=== PATIENT | female | born 1960 | race Caucasian/White ===

== ENCOUNTER 2016-10-10 00:44 | Observation (INO) | payer OTHER ==
[~2016-10-10] VITALS: Ht 167.6 cm; Wt 66.8 kg
[2016-10-10 02:00] LABS: PLATELET COUNT 283 x10^3mcL (130-400); RED CELL DISTRIBUTION WIDTH 12.1 % (11.5-14.5)
[2016-10-10 02:03] LABS: BASOPHIL % 2.6 % (0-2)
[2016-10-10 02:18] LABS: ALBUMIN 4.4 g/dL (3.4-5.0); ALKALINE PHOSPHATASE 95 U/L (46-116); ALT/SGPT 32 U/L (14-59); AST/SGOT 24 U/L (15-37); BILIRUBIN TOTAL 0.43 mg/dL (0.20-1.00); CALCIUM 9.3 mg/dL (8.5-10.1); CARBON DIOXIDE 28.1 mmol/L (21-32); CHLORIDE SERUM 105 mmol/L (98-107); CREATININE SERUM 0.7 mg/dL (0.6-1.0); GFR1 > 60 mL/min; GLUCOSE SERUM 117 mg/dL (74-106); MAGNESIUM 2.2 mg/dL (1.8-2.4); SODIUM SERUM 144 mmol/L (136-145); T4(THYROXINE) 12.1 ug/dL (4.7-13.3)
[2016-10-10 02:21] LABS: TOTAL PROTEIN, SERUM 8.3 g/dL (6.4-8.2)
[2016-10-10 02:38] LABS: UA SPECIFIC GRAVITY <=1.005 (1.005-1.035); microscopic required? YES; urine erythrocyte 1+ (NEGATIVE)
[2016-10-10] MEDS ORDERED: HYDROCHLOROTHIA25 MG PO (03:14)
[2016-10-10 04:21] LABS: CHOLESTEROL/HDL RATIO 3.8; PHOSPHOROUS 2.9 mg/dL (2.5-4.9)
[2016-10-10 04:21] LABS: AMPHETAMINE QUAL UR NONE DETECTED (NEG <=1000)
[2016-10-10 04:56] VITALS: BP 123/80
[2016-10-10 05:34] VITALS: BP 114/57
[2016-10-10 05:52] LABS: CALCIUM 8.6 mg/dL (8.5-10.1); CARBON DIOXIDE 24.9 mmol/L (21-32); CHLORIDE SERUM 108 mmol/L (98-107); CREATININE SERUM 0.7 mg/dL (0.6-1.0); GFR1 > 60 mL/min; GLUCOSE SERUM 122 mg/dL (74-106); POTASSIUM SERUM 3.2 mmol/L (3.5-5.1); SODIUM SERUM 142 mmol/L (136-145)
[2016-10-10 10:25] VITALS: BP 112/69
[2016-10-10 11:49] VITALS: Ht 167.6 cm; Wt 66.8 kg
[2016-10-10 17:48] VITALS: BP 105/64
[2016-10-10 19:45] VITALS: BP 102/64
[2016-10-11 05:42] VITALS: BP 99/62
[2016-10-11 06:12] LABS: BASOPHIL % 0.4 % (0-2); PLATELET COUNT 205 x10^3mcL (130-400); RED CELL DISTRIBUTION WIDTH 13.9 % (11.5-14.5)
[2016-10-11 06:16] LABS: CALCIUM 8.2 mg/dL (8.5-10.1); CARBON DIOXIDE 23.3 mmol/L (21-32); CHLORIDE SERUM 111 mmol/L (98-107); CREATININE SERUM 0.6 mg/dL (0.6-1.0); GFR1 > 60 mL/min; GLUCOSE SERUM 95 mg/dL (74-106); MAGNESIUM 2.2 mg/dL (1.8-2.4); PHOSPHOROUS 2.6 mg/dL (2.5-4.9); POTASSIUM SERUM 3.7 mmol/L (3.5-5.1); SODIUM SERUM 143 mmol/L (136-145)
[2016-10-11 09:59] VITALS: BP 154/78
[2016-10-11 13:18] VITALS: BP 123/71
[2016-10-11] MEDS ORDERED: LISINOPRIL10 MG PO (14:06)
[2016-10-11] MEDS ORDERED: NATURAL IRON65 MG PO (14:08)
[2016-10-11] MEDS ORDERED: K-TAB10 MEQ PO (14:16)
[2016-10-11] MEDS ORDERED: GOOD SENSE OMEP20 MG PO (14:18)
[2016-10-11 15:02] VITALS: BP 123/71
== END 2016-10-11 15:36 | disposition home or self-care (01) | DRG 392 ==
LOC: ED 00:44 → DU 02:39 → ED 02:39 → DU 03:33
PROVIDERS: Emergency Medicine; Family Medicine; ADMIT Family Medicine
DX: K21.9 Gastro-esophageal reflux disease without esophagitis (principal); E87.6 Hypokalemia; R73.03 Prediabetes; E78.5 Hyperlipidemia, unspecified
CPT/HCPCS: 82962; 83880; G0378; J1644; J2060; J3480; J7030

== ENCOUNTER 2017-09-10 23:40 | Inpatient (IN) | payer OTHER ==
[~2017-09-10] VITALS: Ht 165.1 cm; Wt 62.6 kg
[~2017-09-10 23:40] MED LIST: GOOD SENSE OMEP20 MG PO; HYDROCHLOROTHIA25 MG PO; K-TAB10 MEQ PO; LISINOPRIL10 MG PO; NATURAL IRON65 MG PO
[2017-09-11 00:41] LABS: BASOPHIL % 0.4 % (0-2); PLATELET COUNT 216 x10^3mcL (130-400); RED CELL DISTRIBUTION WIDTH 13.9 % (11.5-14.5)
[2017-09-11 00:58] LABS: CALCIUM 9.3 mg/dL (8.5-10.1); CARBON DIOXIDE 27.2 mmol/L (21-32); CHLORIDE SERUM 103 mmol/L (98-107); CREATININE SERUM 0.7 mg/dL (0.6-1.0); GFR1 > 60 mL/min; GLUCOSE SERUM 132 mg/dL (74-106); POTASSIUM SERUM 3.2 mmol/L (3.5-5.1); SODIUM SERUM 138 mmol/L (136-145)
[2017-09-11 01:19] LABS: ALBUMIN 4.2 g/dL (3.4-5.0); ALKALINE PHOSPHATASE 89 U/L (46-116); ALT/SGPT 29 U/L (14-59); AST/SGOT 22 U/L (15-37); BILIRUBIN TOTAL 0.36 mg/dL (0.20-1.00); FREE T4 1.06 ng/dL (0.76-1.46); TOTAL PROTEIN, SERUM 7.5 g/dL (6.4-8.2)
[2017-09-11 01:27] LABS: UA SPECIFIC GRAVITY <=1.005 (1.005-1.035); microscopic required? YES; urine erythrocyte 1+ (NEGATIVE)
[2017-09-11 01:36] LABS: AMPHETAMINE QUAL UR NONE DETECTED (See below)
[2017-09-11] MEDS ORDERED: HYDROCHLOROTHIA25 MG PO (02:15)
[2017-09-11 04:02] VITALS: BP 126/78
[2017-09-11 08:20] VITALS: BP 117/68
[2017-09-11 10:37] VITALS: BP 117/68
== END 2017-09-11 11:31 | disposition home or self-care (01) | DRG 74 ==
LOC: ED 23:40 → DU 09-11 02:52
PROVIDERS: Emergency Medicine
DX: G54.2 Cervical root disorders, not elsewhere classified (principal); R07.9 Chest pain, unspecified; I10 Essential (primary) hypertension; Z82.49 Family history of ischemic heart disease and other diseases of the circulatory system; K21.9 Gastro-esophageal reflux disease without esophagitis; E87.6 Hypokalemia; M62.830 Muscle spasm of back
CPT/HCPCS: 83880; 84439; 85378; J2270; J3480; J7030; Q0092